=== PATIENT | male | born 1970 | race Caucasian/White ===

== ENCOUNTER 2016-06-28 08:11 | Emergency (ER) | payer OTHER ==
[2016-06-28 08:29] VITALS: BP 143/88; PULSE 111; TEMP 98.8; BMI 31.1
[2016-06-28] MEDS ORDERED: IBUPROFEN 600 MG TABLET (FP) PO ONE (08:38)
--- NOTE | 2016-06-28 08:43 | PDOC ---
History of Present Illness - General Chief Complaint: Pain Stated Complaint: [employer], ANKLE PAIN Time Seen by Provider: 06/28/16 08:38 History Source: Patient Exam Limitations: No Limitations - History of Present Illness Initial Comments: 06/28/16 08:41 45 yr male twisted left ankle this morning. Pt stepped the wrong way and twisted ankle. no medical history, occurred while at work. Past History - Past Medical History Allergies/Adverse Reactions: Allergies Allergy/AdvReac Type Severity Reaction Status Date / Time No Known Allergies Allergy Verified 06/28/16 08:26 Home Medications: Ambulatory Orders Aspirin [ASA] 81 mg PO DAILY 03/29/12 Cardiac Disorders: Yes (RBBB) Hypercholesterolemia: Yes - Psycho/Social/Smoking Cessation Hx Anxiety: No Suicidal Ideation: No Smoking Status: Yes Smoking History: Former smoker Have you smoked in the past 12 months: No Number of Cigarettes Smoked Daily: 0 Information on smoking cessation initiated: No Review of Systems - Review of Systems Able to Perform ROS?: Yes Is the patient limited Greenlandic proficient: No Constitutional: No: Symptoms Reported HEENTM: No: Symptoms Reported Respiratory: No: Symptoms reported Cardiac (ROS): No: Symptoms Reported ABD/GI: No: Symptoms Reported : No: Symptoms Reported Musculoskeletal: Yes: Symptoms Reported, See HPI *Physical Exam - Vital Signs Last Vital Signs Temp Pulse Resp BP Pulse Ox 98.8 F 111 H 19 143/88 98 06/28/16 08:26 06/28/16 08:26 06/28/16 08:26 06/28/16 08:26 06/28/16 08:26 - Physical Exam General Appearance: Yes: Nourished, Appropriately Dressed HEENT: positive: EOMI, BRIANA Musculoskeletal: positive: Normal Inspection Extremity: positive: Normal Capillary Refill, Normal Range of Motion, Tender ( left lateral maleolus with swelling, abrasion to lateral ankle, nv intact) Integumentary: positive: Normal Color, Dry, Warm Neurologic: positive: Fully Oriented, Alert, Normal Mood/Affect, Normal Response , Motor Strength 5/5 Procedures - Laceration/Wound Repair Left Lateral Ankle Wound Length: to 2.5 cm Wound Explored: clean Wound's Depth, Shape: superficial (abrasion) Betadine Prep: Yes Sterile Dressing Applied: Yes ED Treatment Course - RADIOLOGY Radiology Studies Ordered: Category Date Time Status ANKLE-LEFT [RAD] Stat Radiology 06/28/16 08:38 Ordered Medical Decision Making - Medical Decision Making 06/28/16 08:42 cc: rolled left ankle swelling noted laterally with superficial abrasion from his ankle boot pt took 400mg ibuprofen [employer]PI[employer]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 *DC/Admit/Observation/Transfer Diagnosis at time of Disposition: Ankle sprain Qualifiers: Encounter type: initial encounter Involved ligament of ankle: other ligament Laterality: left Qualified Code(s): S93.492A - Sprain of other ligament of left ankle, initial encounter - Discharge Dispostion Disposition: HOME Condition at time of disposition: Good - Referrals Referrals: Gordo Ott MD [Staff Physician] - - Patient Instructions Additional Instructions: elevate and appl ice every 2hrs for 20 minutes while awake for the next 2 days take ibuprofen 600mg every 6hrs for pain and swelling follow with the orthopedist for follow up and clearence to return to work use the air cast while awake remove to sleep and bathe - Post Discharge Activity Work/School Note: Back to Work
[2016-06-28] MEDS ORDERED: BACITRACIN 30 GM TUBE TOPICAL OINTMENT TP ONE (08:51)
== END 2016-06-28 09:03 | disposition home or self-care (01) ==
LOC: JERFT 08:11
DX: S93.492A Sprain of other ligament of left ankle, initial encounter (principal); X50.1XXA Overexertion from prolonged static or awkward postures, initial encounter; Y93.89 Activity, other specified; Y92.89 Other specified places as the place of occurrence of the external cause; Y99.0 Civilian activity done for income or pay
CPT/HCPCS: 73610-TC-LT; 99281-25

== ENCOUNTER 2016-08-24 10:52 | Emergency (ER) | payer OTHER ==
[2016-08-24 11:03] VITALS: BP 145/68; PULSE 98; TEMP 98.3; BMI 31.1
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
[2016-08-24 12:30] LABS: ALBUMIN 4.4 g/dl (3.4-5.0); ANION GAP 11 (8-16); BILIRUBIN,TOTAL 0.7 mg/dL (0.2-1.0); CALCIUM 9.5 mg/dL (8.5-10.1); CHOLESTEROL 245 mg/dL (50-200); CO2 29 mmol/L (21-32); GLUCOSE,RANDOM 96 mg/dL (74-106); LDH 161 U/L (87-241); PHOSPHOROUS 3.2 mg/dL (2.5-4.9); SGOT/AST 21 U/L (15-37); SGPT/ALT 40 U/L (12-78); TOT PROT 7.5 g/dl (6.4-8.2)
[2016-08-24 12:31] LABS: ALK PHOS 50 U/L (45-117)
[2016-08-24 12:35] LABS: MEAN CELL VOLUME 85.2 fl (80-96)
[2016-08-24 12:36] LABS: BASOPHIL 0.7 % (0-2.0); EOSINOPHIL 1.2 % (0-4.5); MCH 28.8 pg (25.7-33.7); MCHC 33.8 g/dl (32.0-35.9); MEAN PLT VOLUME 7.8 fl (7.5-11.1); PLATELET COUNT 276 K/MM3 (134-434); RDW 13.5 % (11.9-15.9); WHITE BLOOD COUNT 7.5 K/mm3 (4.0-10.0)
[2016-08-24 12:50] LABS: URIC ACID 5.3 mg/dL (2.6-7.2)
[2016-08-24 13:25] LABS: HIV 1 & 2 AB NEGATIVE; HIV 1 AGp24 NEGATIVE
[2016-08-25 06:06] LABS: HEP B SURFACE AB Non Reactive (.)
== END 2016-08-24 12:08 | disposition home or self-care (01) ==
LOC: JERFT 10:52
DX: Z77.21 Contact with and (suspected) exposure to potentially hazardous body fluids (principal); Y35.811A Legal intervention involving manhandling, law enforcement official injured, initial encounter; Y93.89 Activity, other specified; Y92.89 Other specified places as the place of occurrence of the external cause; Y99.0 Civilian activity done for income or pay
CPT/HCPCS: 36415; 80053; 82465; 82977; 83615; 84100; 84478; 84550; 85025; 86704; 86706; 87340; 87389; 99281-25